=== PATIENT | female | born 1960 | race African-American/Black ===

== ENCOUNTER 2018-06-11 10:08 | Observation (INO) | payer OTHER ==
[2018-06-11] MEDS: HYDROmorphONE 1 MG/ML SYG IV (10:49)
[2018-06-11] MEDS: ONDANSETRON 4 MG INJ IV ×2 (10:49→20:37)
[2018-06-11] MEDS: SOD CHLORIDE 0.9% 1,000 ML IV (10:49)
[2018-06-11 11:03] LABS: ADD MAN DIFF? NO
[2018-06-11 11:07] LABS: BASOPHILS % 0.2 % (0.0-2.0); HEMATOCRIT 44.4 % (37.0-47.0); HEMOGLOBIN 14.3 g/dl (12.0-16.0); LYMPHOCYTES # 1.4 10^3/ul (0.8-2.9); LYMPHOCYTES % 13.8 % (15.0-51.0); MEAN CORPUSCULAR HEMOGLOBIN 27.1 pg (29.0-33.0); MEAN CORPUSCULAR HGB CONC 32.2 g/dl (32.0-37.0); MEAN CORPUSCULAR VOLUME 84.1 fl (82.0-101.0); MEAN PLATELET VOLUME 9.7 fl (7.4-10.4); MONOCYTE # 0.4 10^3/ul (0.3-0.9); MONOCYTES % 3.7 % (0.0-11.0); NEUTROPHIL # 8.2 10^3/ul (1.6-7.5); PLATELET COUNT 412 10^3/UL (140-415); RED BLOOD COUNT 5.28 10^6/ul (4.20-5.40); RED CELL DISTRIBUTION WIDTH 13.1 % (11.5-14.5)
[2018-06-11 11:21] LABS: ANION GAP 16 (5-13); BLOOD UREA NITROGEN 22 mg/dl (7-20); CARBON DIOXIDE 31 mmol/L (21-31); CHLORIDE 94 mmol/L (97-110); CREATININE 0.63 mg/dl (0.44-1.00); Estimated GFR > 60 mL/min (>60); GLUCOSE 259 mg/dl (70-220); POTASSIUM 4.6 mmol/L (3.5-5.1); SODIUM 141 mmol/L (135-144)
[2018-06-11 11:26] LABS: INR 0.94; PROTIME 12.7 Sec (11.9-14.9)
[2018-06-11 11:27] LABS: PARTIAL THROMBOPLASTIN TIME 26.2 Sec (23.0-35.0)
[2018-06-11 11:33] LABS: TROPONIN-I < 0.012 ng/ml (0.000-0.120)
[2018-06-11] MEDS: FAMOTIDINE 20 MG INJ IV (14:24)
[2018-06-11] MEDS: ACETAMINOPHEN 325 MG TAB PO (20:37)
[2018-06-11] MEDS ORDERED: LORAZEPAM 0.5 MG TAB PO (22:30)
[2018-06-11] MEDS ORDERED: GLUCAGON 1 MG INJ IM ×2 (22:30)
[2018-06-11] MEDS ORDERED: DEXTROSE 50% 50 ML SYRINGE IV ×4 (22:30)
[2018-06-11] MEDS ORDERED: ACETAMINOPHEN 325 MG TAB PO (22:30)
[2018-06-11] MEDS ORDERED: ZOLPIDEM 5 MG TAB PO (22:30)
[2018-06-11] MEDS ORDERED: ONDANSETRON 4 MG INJ IV (22:30)
[2018-06-11] MEDS ORDERED: GLUCOSE GEL 15 GRAM TUBE PO ×4 (22:30)
[2018-06-11] MEDS ORDERED: GLUCOSE GEL 15 GRAM TUBE BUCCAL ×2 (22:30)
[2018-06-11 22:50] LABS: CREATINE KINASE 42 IU/L (23-200)
[2018-06-11 23:03] LABS: CK INDEX 3.4; CK-MB 1.44 ng/ml (0.0-2.4); TROPONIN-I 0.016 ng/ml (0.000-0.120)
[2018-06-11] MEDS: DOCUSATE SODIUM 100 MG CAP PO (23:26)
[2018-06-11] MEDS: AMITRIPTYLINE 25 MG TAB PO (23:26)
[2018-06-11] MEDS: hydrALAzine 20 MG INJ IV (23:28)
[2018-06-11] MEDS: BARIUM SULF 2% 450 ML BTL (BERRY SMOOTHIE) PO (23:30)
[2018-06-12] MEDS: HYDROCODONE/APAP (5/325) TAB PO ×2 (00:33→17:17)
[2018-06-12] MEDS: LABETALOL HCL 20MG INJ IV (02:17)
[2018-06-12] MEDS: CALCIUM CARBONATE 500 MG CHEW TAB PO (02:17)
[2018-06-12] MEDS: AL HYDROX/MG HYDROX/SIMETH 30 ML CUP PO (02:17)
[2018-06-12] MEDS: GABAPENTIN 300 MG CAP PO ×2 (02:26→21:51)
[2018-06-12 05:06] LABS: ADD UMIC YES; UR ASCORBIC ACID NEGATIVE (NEGATIVE); UR BACTERIA MANY /HPF (NONE SEEN); UR BILIRUBIN (Dip) NEGATIVE (NEGATIVE); UR BLOOD (Dip) 1+ mg/dL (NEGATIVE); UR CLARITY CLOUDY (CLEAR); UR COLOR RED (YELLOW); UR GLUCOSE (Dip) 3+ mg/dL (NEGATIVE); UR KETONES (Dip) NEGATIVE (NEGATIVE); UR LEUKOCYTE ESTERASE (Dip) 2+ Leu/ul (NEGATIVE); UR NITRITE (Dip) NEGATIVE (NEGATIVE); UR RBC 4 /HPF (0-5); UR SPECIFIC GRAVITY (Dip) 1.013 (1.003-1.030); UR SQUAMOUS EPITHELIAL CELL FEW /HPF (FEW); UR TOTAL PROTEIN (Dip) NEGATIVE (NEGATIVE); UR UROBILINOGEN (Dip) NEGATIVE (NEGATIVE); UR WBC 50 /HPF (0-5)
[2018-06-12 05:10] LABS: AMPHETAMINE/METHAMPHETAMINE Negative (NEGATIVE); BARBITURATES Negative (NEGATIVE); BENZODIAZEPINES Negative (NEGATIVE); CANNABINOIDS Negative (NEGATIVE); COCAINE Negative (NEGATIVE); OPIATES Negative (NEGATIVE)
[2018-06-12 05:53] LABS: ADD MAN DIFF? NO
[2018-06-12 06:25] LABS: BASOPHILS % 0.2 % (0.0-2.0); EOSINOPHILS % 0.2 % (0.0-7.0); HEMOGLOBIN 11.4 g/dl (12.0-16.0); LYMPHOCYTES # 2.5 10^3/ul (0.8-2.9); LYMPHOCYTES % 25.4 % (15.0-51.0); MEAN CORPUSCULAR HEMOGLOBIN 27.1 pg (29.0-33.0); MEAN CORPUSCULAR HGB CONC 31.7 g/dl (32.0-37.0); MEAN CORPUSCULAR VOLUME 85.7 fl (82.0-101.0); MONOCYTE # 0.8 10^3/ul (0.3-0.9); MONOCYTES % 8.1 % (0.0-11.0); NEUTROPHIL # 6.5 10^3/ul (1.6-7.5); NEUTROPHILS % 65.8 % (39.0-77.0); PLATELET COUNT 365 10^3/UL (140-415)
[2018-06-12 06:25] LABS: WHITE BLOOD COUNT 9.9 10^3/ul (4.8-10.8)
[2018-06-12 06:35] LABS: CREATINE KINASE 58 IU/L (23-200)
[2018-06-12 06:47] LABS: CK INDEX 2.1; CK-MB 1.22 ng/ml (0.0-2.4); TROPONIN-I 0.018 ng/ml (0.000-0.120)
[2018-06-12 07:03] LABS: ALANINE AMINOTRANSFERASE 18 IU/L (13-69); ALBUMIN 3.9 g/dl (3.3-4.9); ALBUMIN/GLOBULIN RATIO 1.05; ALKALINE PHOSPHATASE 76 IU/L (42-121); ANION GAP 14 (5-13); ASPARTATE AMINO TRANSFERASE 18 IU/L (15-46); BILIRUBIN,INDIRECT 0.3 mg/dl (0-1.1); BILIRUBIN,TOTAL 0.3 mg/dl (0.2-1.3); BLOOD UREA NITROGEN 21 mg/dl (7-20); CALCIUM 9.4 mg/dl (8.4-10.2); CARBON DIOXIDE 25 mmol/L (21-31); CHLORIDE 101 mmol/L (97-110); CHOLESTEROL 198 mg/dl (100-200); CREATININE 0.62 mg/dl (0.44-1.00); Estimated GFR > 60 mL/min (>60); GLUCOSE 175 mg/dl (70-220); HDL CHOLESTEROL 49 mg/dl (35-98); MAGNESIUM 1.9 mg/dl (1.7-2.5); POTASSIUM 4.5 mmol/L (3.5-5.1); SODIUM 140 mmol/L (135-144); TOTAL PROTEIN 7.6 g/dl (6.1-8.1)
[2018-06-12 07:22] LABS: HEMOGLOBIN A1C 7.1 % (0-5.9)
[2018-06-12 07:29] LABS: LDL CHOLESTEROL,CALCULATED 131 mg/dl; TRIGLYCERIDES 90 mg/dl (0-149)
[2018-06-12] MEDS: ACCU-CHEK XX ×4 (07:58→21:50)
[2018-06-12] MEDS: metFORMIN 500 MG TAB PO ×2 (07:58→17:17)
[2018-06-12] MEDS: INSULIN ASPART [NOVOLOG] 3 ML PEN SC ×4 (07:58→21:00)
[2018-06-12] MEDS ORDERED: ASPIRIN 81 MG TAB PO (09:00)
[2018-06-12] MEDS ORDERED: NON-FORMULARY/PATIENT OWN MED (Omeprazole* 20 MG) PO (09:00)
[2018-06-12] MEDS: INSULIN GLARGINE [LANTus] (100 UNITS/ML) SYG SC (09:00)
[2018-06-12] MEDS: LOSARTAN 25 MG TAB PO (09:04)
[2018-06-12] MEDS: NICOTINE (21 MG/24 HR) PATCH TRANSDERM (09:04)
[2018-06-12] MEDS: DOCUSATE SODIUM 100 MG CAP PO ×2 (09:04→21:00)
[2018-06-12] MEDS: FAMOTIDINE 20 MG INJ IV ×2 (09:04→21:51)
[2018-06-12] MEDS: CLOPIDOGREL 75 MG TAB PO (09:05)
[2018-06-12] MEDS: BUPROPION (XL) 150 MG TAB PO (09:05)
[2018-06-12] MEDS: ENOXAPARIN 40 MG/0.4 ML SYG SC (09:15)
[2018-06-12] MEDS: hydrALAzine 20 MG INJ IV (16:08)
[2018-06-12] MEDS ORDERED: GABAPENTIN 300 MG CAP PO (21:00)
[2018-06-12] MEDS: AMITRIPTYLINE 25 MG TAB PO (21:51)
[2018-06-13] MEDS: hydrALAzine 20 MG INJ IV (01:38)
[2018-06-13 06:18] LABS: ANION GAP 12 (5-13); BLOOD UREA NITROGEN 22 mg/dl (7-20); CALCIUM 9.6 mg/dl (8.4-10.2); CARBON DIOXIDE 27 mmol/L (21-31); CHLORIDE 100 mmol/L (97-110); CREATININE 0.73 mg/dl (0.44-1.00); Estimated GFR > 60 mL/min (>60); GLUCOSE 133 mg/dl (70-220); POTASSIUM 4.2 mmol/L (3.5-5.1); SODIUM 139 mmol/L (135-144)
[2018-06-13] MEDS: metFORMIN 500 MG TAB PO (07:52)
[2018-06-13] MEDS: INSULIN ASPART [NOVOLOG] 3 ML PEN SC ×2 (07:55→11:27)
[2018-06-13] MEDS: ACCU-CHEK XX ×2 (07:55→11:23)
[2018-06-13] MEDS: INSULIN GLARGINE [LANTus] (100 UNITS/ML) SYG SC (08:01)
[2018-06-13] MEDS: DOCUSATE SODIUM 100 MG CAP PO (08:50)
[2018-06-13] MEDS: FAMOTIDINE 20 MG INJ IV (08:50)
[2018-06-13] MEDS: NICOTINE (21 MG/24 HR) PATCH TRANSDERM (08:50)
[2018-06-13] MEDS: LOSARTAN 50 MG TAB PO (08:50)
[2018-06-13] MEDS: CLOPIDOGREL 75 MG TAB PO (08:50)
[2018-06-13] MEDS: BUPROPION (XL) 150 MG TAB PO (08:50)
[2018-06-13] MEDS: ENOXAPARIN 40 MG/0.4 ML SYG SC (08:59)
== END 2018-06-13 14:00 | disposition home or self-care (01) ==
LOC: E/R 10:08 → 6WM 13:12
DX: R55 Syncope and collapse (principal); R07.9 Chest pain, unspecified; F17.200 Nicotine dependence, unspecified, uncomplicated; E11.9 Type 2 diabetes mellitus without complications; I10 Essential (primary) hypertension; Z79.4 Long term (current) use of insulin
CPT/HCPCS: 36415; 70450; 71045; 71100; 74176; 80048; 80053; 80061; 80307; 81001; 82550; 82553; 82962; 83036; 83735; 84443; 84484; 85025; 85610; 85730; 93005; 93306; 93880; 96372; 96374; 96375; 96376; 97163; 99285-25; G0378